=== PATIENT | female | born 1985 | race African-American/Black ===

== ENCOUNTER → 2019-06-30 | Outpatient (REF) | payer OTHER, MEDICARE | LOC: M SFHCCLAY 09:44 | DX: Z53.9 Procedure and treatment not carried out, unspecified reason (principal) ==

== ENCOUNTER → 2020-03-14 | Outpatient (REF) | payer OTHER, MEDICARE | LOC: M SFHCPLAZ 10:23 | PROVIDERS: ATTEND Family Medicine | DX: M54.5 Low back pain (principal) ==

== ENCOUNTER → 2021-03-05 | Outpatient (CLI) | payer OTHER, MEDICARE | LOC: M PAIN 09:56 | PROVIDERS: ATTEND Anesthesiology | DX: Z53.9 Procedure and treatment not carried out, unspecified reason (principal) ==

== ENCOUNTER → 2022-02-18 | Outpatient (CLI) | payer SELFPAY, OTHER, MEDICARE | LOC: M PAIN 12:00 | PROVIDERS: ATTEND Anesthesiology | DX: Z53.8 Procedure and treatment not carried out for other reasons (principal) ==

== ENCOUNTER → 2023-05-31 | Outpatient (CLI) | payer SELFPAY, OTHER, MEDICARE | LOC: M PAIN 12:00 | PROVIDERS: ATTEND Nurse Practitioner Family | DX: Z53.8 Procedure and treatment not carried out for other reasons (principal) ==